=== PATIENT | female | born 1955 | race Two or more races ===

== ENCOUNTER 2018-10-25 22:59 | Inpatient (IN) | payer OTHER ==
[~2018-10-25] VITALS: Ht 152.4 cm; Wt 82.6 kg
[2018-10-25 23:00] VITALS: BP 164/73
--- NOTE | 2018-10-25 23:10 | NUR ---
KEYBOARDING CLERK NOTE PATIENT RECEIVED IN [facility] WITH TRANSPORTATION TEAM FROM [facility]. PATIENT IN NO CURRENT S/S OF DISTRESS. PATIENT DENIES CHEST PAIN, DISCOMFORT/ SOB. LUNG SOUNDS CLEAR, HEART SOUNDS NORMAL S1 AND S2 PRESENT. PATIENT HAS RAC 20G PATENT IN TACT NO S/S OF INFECTION. PATIENT A/O X 4 ARMENIAN SPEAKING. PATIENT AMBULATORY ABLE TO WALK TO THE BED, GAIT STEADY NO WOB NOTICED OF SOB WHILE WALKING. PATIENT HAS INDEPENDENT MOBILITY IN BED AND MOTIVATED FOR SELF CARE. PATIENT SKIN GROSSLY INTACT. PATIENT ORIENTED TO UNIT AND PLAN OF CARE DISCUSSED PATIENT. CALL LIGHT WITHIN REACH. BED IN LOWEST LOCKED POSITION, SEMI FOWLERS, SIDE RAILS X 2. RN WILL CONTINUE TO MONITOR.
[2018-10-26] VITALS: BP 118/64
[2018-10-26] MEDS ORDERED: AMLO10TA7 PO (00:23)
[2018-10-26] MEDS ORDERED: RANI300T4 PO (00:23)
[2018-10-26] MEDS ORDERED: HYDR25TA4 PO (00:23)
[2018-10-26] MEDS ORDERED: ASPI-1169 PO (00:23)
[2018-10-26] MEDS ORDERED: LEVO50TA8 PO (00:23)
[2018-10-26] MEDS ORDERED: METF-440 PO (00:23)
[2018-10-26] MEDS ORDERED: ACETAMINOPHEN 325 MG TABLET PO PRN (01:00)
[2018-10-26] MEDS ORDERED: MAG HYDROX/AL HYDROX/SIMETH 30 ML UDC PO PRN (01:00)
[2018-10-26] MEDS ORDERED: DEXTROSE 50%-WATER 50 ML DISP.SYRIN IV PRN (01:00)
[2018-10-26] MEDS ORDERED: Z GUARD REMEDY 2 OZ OINT TP PRN (01:00)
[2018-10-26] MEDS ORDERED: INSULIN REGULAR, HUMAN 100 UNIT/ML 3 ML VIAL SQ PRN (01:00)
[2018-10-26] MEDS ORDERED: HYDROCODONE/APAP 5/325MG 1 EACH TABLET PO PRN (01:00)
[2018-10-26] MEDS ORDERED: ONDANSETRON HCL/PF 4 MG/2 ML VIAL IVP PRN (01:00)
[2018-10-26] MEDS ORDERED: MAGNESIUM HYDROXIDE 30 ML UDC PO PRN (01:00)
[2018-10-26 04:00] VITALS: BP 124/69
[2018-10-26 04:32] VITALS: BP 124/69
--- NOTE | 2018-10-26 06:23 | NUR ---
OFFICE MANAGER NOTE PATIENT TOLERATED THE NIGHT NO S/S OF DISTRESS. PATIENT HR 91 ON THE MONITOR SR. NO ACUTE CHANGES RN WILL ENDORSE TO AM FOR GENA.
[2018-10-26 06:30] LABS: CALCIUM, SERUM 9.3 mg/dL (8.5-10.1); CREATININE 0.8 mg/dL (0.6-1.3); POTASSIUM 4.1 mmol/L (3.5-5.1)
[2018-10-26 06:32] LABS: BASOPHILS % (AUTO) 0.3 % (0.0-2.0); EOSINOPHILS % (AUTO) 1.2 % (0.0-6.0); HEMATOCRIT 39 % (33-45); HEMOGLOBIN 13.5 g/dL (11.5-14.8); LYMPHOCYTES # (AUTO) 2.9 /CMM (0.8-4.8); LYMPHOCYTES % (AUTO) 41.4 % (20.0-44.0); MEAN CORPUSCULAR HGB CONC 34 g/dl (31.0-36.0); MEAN CORPUSCULAR VOLUME 89 fL (82-100); MONOCYTES # (AUTO) 0.6 /CMM (0.1-1.30); MONOCYTES % (AUTO) 7.9 % (2.0-12.0); NEUTROPHILS # (AUTO) 3.4 /CMM (1.8-8.9); NEUTROPHILS % (AUTO) 49.2 % (43.0-81.0); PLATELET COUNT (AUTO) 186 /CMM (150-450); RED BLOOD CELL COUNT(AUTO) 4.43 MIL/uL (4.0-5.2)
[2018-10-26 06:34] LABS: ALBUMIN 3.7 g/dL (3.4-5.0); BILIRUBIN,TOTAL 0.6 mg/dL (0.2-1.0); PHOSPHORUS 4.1 mg/dL (2.5-4.9); TOTAL PROTEIN, SERUM 7.2 g/dL (6.4-8.2)
[2018-10-26 06:41] LABS: THYROID STIMULATING HORMONE 4.037 uIU/mL (0.358-3.74)
--- NOTE | 2018-10-26 07:44 | NUR ---
RN MS OPENING BEDSIDE REPORT GIVEN PATIENT A/O X4 MOH[place]K SPEAKING . NO SIGNS OR SYMPTOMS OF RESPIRATORY DISTRESS OR ACUTE PAIN NOTED. SINUS ON MONITOR 80"S AMBULATORY IN ROOM SKIN INTACT RAC # 20 GAUGE SALINE LOCK. LABS TO BE DRAWN ABLE TO MAKE NEEDS KNOWN BY STAFF. SAFETY PRECAUTIONS IN PLACE BED IN LOW POSITION CALL LIGHT WITH IN REACH WILL CONT TO MONITOR
[2018-10-26 08:00] VITALS: BP 129/65
[2018-10-26] MEDS: BLOOD SUGAR DIAGNOSTIC 1 EACH STRIP IN SCH ×3 (08:15→17:43)
[2018-10-26] MEDS ORDERED: FAMOTIDINE (20 MG) 20 MG TABLET PO SCH (09:00)
[2018-10-26] MEDS ORDERED: HYDROCHLOROTHIAZIDE 25 MG TABLET PO SCH (09:00)
[2018-10-26] MEDS ORDERED: AMLODIPINE BESYLATE 10 MG TABLET PO SCH (09:00)
[2018-10-26] MEDS ORDERED: ASPIRIN 81 MG TAB.CHEW PO SCH (09:00)
[2018-10-26] MEDS ORDERED: LEVOTHYROXINE SODIUM 50 MCG TABLET PO SCH (09:00)
[2018-10-26] MEDS ORDERED: LOSARTAN POTASSIUM 50 MG TABLET PO SCH (11:00)
[2018-10-26 12:00] VITALS: BP 148/68
[2018-10-26 16:00] VITALS: BP 110/57
--- NOTE | 2018-10-26 16:30 | NUR ---
RN MS NOTES HAND OFF REPORT GIVEN TO CARL CARRANZA
--- NOTE | 2018-10-26 16:30 | NUR ---
RN NOTE RECEIVED PATIENT FROM [facility]. PATIENT AWARE OF DISCHARGE TODAY. STABLE, NO PAIN NO SOB. AMBULATORY. ALERT AND ORIENTED X4, ROMANSH SPEAKING
--- NOTE | 2018-10-26 18:42 | NUR ---
RN NOTE PATIENT JUST LEFT THE UNIT. MEDICALLY STABLE.
== END 2018-10-26 18:40 | disposition home or self-care (01) | DRG 203 ==
LOC: MEDSG1 23:28 → TELE1 10-26 00:04 → MEDSG1 10-26 10:30
PROVIDERS: ADMIT Nurse Practitioner Acute Care; ATTEND Nurse Practitioner Acute Care
DX: R07.9 Chest pain, unspecified (principal); N17.0 Acute kidney failure with tubular necrosis; E03.9 Hypothyroidism, unspecified; Y92.89 Other specified places as the place of occurrence of the external cause; E78.5 Hyperlipidemia, unspecified; E11.9 Type 2 diabetes mellitus without complications; J45.909 Unspecified asthma, uncomplicated; E66.9 Obesity, unspecified; Z68.35 Body mass index [BMI] 35.0-35.9, adult; I10 Essential (primary) hypertension; Z86.12 Personal history of poliomyelitis; G47.33 Obstructive sleep apnea (adult) (pediatric); T46.5X5A Adverse effect of other antihypertensive drugs, initial encounter
CPT/HCPCS: 36415; 80053-TC; 80061-TC; 82962-TC; 83735-TC; 84100-TC; 84443-TC; 84484-TC; 85025-TC; 87081-TC; 93307-TC; G0378; J1815